=== PATIENT | female | born 1970 | race Caucasian/White ===

== ENCOUNTER → 2020-03-25 | Day surgery (SDC) | payer OTHER ==
[~2020-03-25] MED LIST: ARMOUR THYROID60 MG PO; BACITRACIN 50,000 UNIT VIAL ONE; BUPIVACAINE HCL 0.5% INJ 30 ML VIAL INJ ONE; CEFAZOLIN SOD 1 GM/NS 50ML 50 ML IV ONE; DEXAMETHASONE SOD PHOS INJ 4 MG/ML VIAL ONE; ETOMIDATE 2 MG/ML 10 ML INJ IV ONE; FLONASE ALLERG9.9 ML; KETOROLAC TROMETHAMINE 30 MG/ML VIAL ONE; LIDOCAINE 1% W/EPINEPHRINE 20 ML VIAL ONE; LIDOCAINE HCL 2% LOCAL INJ 5 ML SDV VIAL INJ ONE; MUPIROCIN 2% OINT 22 GM TUBE ONE; ONDANSETRON HCL INJ 2MG/ML 2ML 2 MG/ML VIAL ONE; PROGESTERONE200 MG PO; PROPOFOL IV EMULSION 10 MG/ML 20 ML VIAL ONE; SEVOFLURANE INHAL SOLN 250 ML PEN BTL ONE; SINGULAIR10 MG PO; VITAMIN B-121000 MC1 PO; VITAMIN D3250 MC1 PO
[2020-03-25 10:35] VITALS: BP 146/78
--- NOTE | 2020-03-25 13:34 | Operative Report ---
DATE OF PROCEDURE: 03/25/2020 SURGEON: Satish Ibarra MD PREOPERATIVE DIAGNOSES: 1. Right and left carpal tunnel syndrome. 2. Mass of scalp preoperatively. POSTOPERATIVE DIAGNOSES: 1. Right and left carpal tunnel syndrome. 2. Flexor tenosynovitis right and left wrist. 3. Sebaceous cysts of scalp, 2.5 cm. PROCEDURES: 1. Right and left open carpal tunnel release. 2. Flexor tenosynovectomy right and left wrist. 3. Excision of soft tissue mass 2.5 cm of scalp. ANESTHESIA: General. HISTORY: The patient is a 50-year-old with EMG-proven right and left carpal tunnel syndrome. Risks, benefits and alternatives of treatment were discussed with the patient. The patient is prepared to undergo the procedure as outlined. DESCRIPTION OF PROCEDURE: The patient was brought to the operating theater. After the induction of adequate general inhalation anesthesia, the patient was prepped and draped in the supine position. A time out was performed by the entire operating room team. A 2.5 cm incision was marked out in the intrathenar space. The right and left upper extremity were exsanguinated, and a tourniquet was inflated to a pressure of 250 mmHg. The incision was made through the skin and subcutaneous tissues and all venous tributaries were controlled with bipolar cautery. The incision was deepened through the palmar fascia until the transverse carpal ligament was identified. The ligament was sharply sectioned, taking care to protect and preserve the median nerve underlying it. After the complete width of the ligament had been transected, the distal volar forearm fascia was divided under direct view. Proliferative flexor tenosynovium was noticed to encompass the median nerve and this was radically excised. After performing this maneuver, the nerve was noted to lie adequately decompressed. The wound was copiously irrigated with bacteriostatic saline, closed with 5-0 nylon in an interrupted horizontal mattress fashion. A Marcaine field block was performed at the operative site. Tourniquet was deflated. All of the fingers pinked up nicely and a sterile bulking conforming bandage was applied to the hand and the wrist. A fiberglass splint was fashioned to maintain the wrist in a modest amount of extension. This was held in place with a loosely wrapped Cholo wrap. The patient tolerated the procedure well and was brought to the recovery room in satisfactory condition and discharged with a postoperative instruction sheet as well as a followup appointment. The scalp was prepped and draped in a sterile fashion. 1% Xylocaine with epinephrine was used to infiltrate the scalp and the subcutaneous tissues. A total of 5 mL was used. The incision was made through the scalp and the subcutaneous tissue. Bleeding was controlled using the electrocautery. The incision was deepened through the subcutaneous plane and a well circumscribed cyst was encountered. The cyst was dissected on all sides and then was removed in its entirety without rupturing it. The wound was irrigated with bacteriostatic saline and closed with a 4-0 nylon in an interrupted horizontal mattress fashion. A Marcaine field block was performed at the operative site. Bactroban ointment was applied. The patient tolerated the procedure well and then was brought to recovery room in satisfactory condition. MD JOSE MANUEL Dominguez/SADE /[id number]
== END | disposition home or self-care (01) ==
LOC: OR 05:38
PROVIDERS: ATTEND Plastic Surgery
DX: G56.03 Carpal tunnel syndrome, bilateral upper limbs (principal); M65.832 Other synovitis and tenosynovitis, left forearm; M65.831 Other synovitis and tenosynovitis, right forearm; L72.3 Sebaceous cyst; E03.9 Hypothyroidism, unspecified; Z01.812 Encounter for preprocedural laboratory examination; Z11.59 Encounter for screening for other viral diseases
CPT/HCPCS: 11423; 25115; 81025; J0690; J1100; J1885; J2001; J2405; J2704; U0002